=== PATIENT | male | born 1980 | race American Indian/Alaskan Native ===

== ENCOUNTER 2017-05-22 00:58 | Emergency (ER) | payer MEDICARE ==
--- NOTE | 2017-05-22 03:09 | XRay Report ---
FINAL REPORT PROCEDURE: XR KNEE 1-2V RT TECHNIQUE: RIGHT knee radiographs, AP and lateral views. CPT 99556 HISTORY: pain and swelling RT KNEE COMPARISON: No prior studies are available for comparison. FINDINGS: Fracture (s) and/or Dislocation(s): None . Alignment: Normal . Joint space(s): Normal . Soft tissues: Normal . Bone mineralization: Normal . Foreign bodies: None . IMPRESSION: Normal Examination.
--- NOTE | 2017-05-22 03:34 | Emergency Department Report ---
HPI - General Chief Complaint: Extremity Injury, Lower - HPI HPI: 37-year-old -[place] male comes in complaining of right knee pain 2 days. Patient reports that his knee has been swollen. He admits that he has a history of gout and believes this is one of his flareups. Patient reports that he's been taking probenecid and Motrin indomethacin and colchicine. Patient admits during interview that his knees seems to be improving. He is requesting a steroid injection. ED Past Medical Hx - Past Medical History Hx Hypertension: Yes Additional medical history: Gout, Morbid Obesity, - Surgical History Additional Surgical History: Back Surgery - Social History Smoking Status: Never Smoker Substance Use Type: None - Medications Home Medications: Home Medications Medication Instructions Recorded Confirmed Last Taken Type Colchicine 0.6 mg PO DAILY 05/22/17 05/22/17 Unknown History Colchicine 0.6 mg PO DAILY #30 capsule 05/22/17 Unknown Rx Indomethacin 50 mg PO DAILY PRN 05/22/17 05/22/17 Unknown History Indomethacin 50 mg PO Q8H #30 capsule 05/22/17 Unknown Rx Motrin 800 MG tab 1 tab PO BID PRN 05/22/17 05/22/17 Unknown History Probenecid 1 tab PO DAILY 05/22/17 05/22/17 Unknown History ED Review of Systems ROS: Stated complaint: GOUT Other details as noted in HPI Constitutional: denies: chills, fever Eyes: denies: eye pain, eye discharge, vision change ENT: denies: ear pain, throat pain Respiratory: denies: cough, shortness of breath, wheezing Cardiovascular: denies: chest pain, palpitations Endocrine: no symptoms reported Gastrointestinal: denies: abdominal pain, nausea, diarrhea Musculoskeletal: joint swelling, arthralgia Skin: denies: rash, lesions Neurological: denies: headache, weakness, paresthesias Psychiatric: denies: anxiety, depression Hematological/Lymphatic: denies: easy bleeding, easy bruising Physical Exam - Physical Exam Vital Signs: Vital Signs 05/22/17 02:01 Temperature 98.3 F Pulse Rate 95 H Respiratory 18 Rate Blood Pressure 161/92 O2 Sat by Pulse 94 Oximetry Physical Exam: GENERAL: Alert and oriented x3, no apparent distress, Normal Gait, atraumatic. HEAD: Head is normocephalic and a-traumatic. EYES: Extra ocular muscles are intact. Pupils are equal, round, and reactive to light and accommodation. NECK: Supple. Non edematous, No carotid bruits. No lymphadenopathy or thyromegaly. LUNGS: Symetrical with respiration, No wheezing, no rales or crackles, CTAB. HEART: S1, S2 present, regular rate and rhythm without murmur, no rubs, no gallops. EXTREMITIES/MUSCULOSKELETAL: No cyanosis, clubbing, rash, lesions or edema. Full ROM bilaterally. UE/LE Pulses 2+ bilaterally. LE and UE 5+ strength bilaterally right knee edema and tenderness with some warth. NEUROLOGIC: No focal Deficit, Cranial nerves II through XII are grossly intact. No loss of sensation, No facial droop, Negative rhomberg. PSYCHIATRIC: Mood is congruent with affect, denies suicidal or homicidal ideations. SKIN: Warm and dry, No lesions, No ulceration or induration present ED Course Vital Signs 05/22/17 02:01 Temperature 98.3 F Pulse Rate 95 H Respiratory 18 Rate Blood Pressure 161/92 O2 Sat by Pulse 94 Oximetry ED Medical Decision Making - Medical Decision Making Assessment evaluated by this provider fast track. I discussed the patient was given one Sweet Water 10 mg as well as at the methadone 20 mg IM. We will discharge patient with refills of his colchicine and his indomethacin. Patient verbalized understanding. Critical care attestation.: If time is entered above; I have spent that time in minutes in the direct care of this critically ill patient, excluding procedure time. ED Disposition Clinical Impression: Gout attack Disposition: DC-01 TO HOME OR SELFCARE Is pt being admited?: No Does the pt Need Aspirin: No Condition: Stable Instructions: Acute Gouty Arthritis (ED) Additional Instructions: Take medication as prescribed. Follow up with her primary care provider for further evaluation. Prescriptions: Colchicine 0.6 mg PO DAILY #30 capsule Indomethacin 50 mg PO Q8H #30 capsule Referrals: AMARIS WOMACK MD [Primary Care Provider] - 3-5 Days
[2017-05-22] MEDS: NORCO 10/325 PO ONE (04:07)
[2017-05-22] MEDS: DECADRON IM ONE ×2 (04:07→04:10)
[2017-05-22 04:33] VITALS: BP 144/94
== END 2017-05-22 04:32 | disposition home or self-care (01) ==
LOC: ED 00:58
DX: M10.9 Gout, unspecified (principal); I10 Essential (primary) hypertension
CPT/HCPCS: 73560; 96372; 99283; J1100

== ENCOUNTER 2017-08-25 21:34 | Emergency (ER) | payer MEDICARE ==
--- NOTE | 2017-08-26 03:05 | Emergency Department Report ---
ED General Adult HPI - General Chief complaint: Pain General Stated complaint: GOUT RT FOOT Time Seen by Provider: 08/26/17 02:33 Source: patient Mode of arrival: Ambulatory Limitations: No Limitations - History of Present Illness Initial comments: This is a 37 y.o. male presents with right foot pain secondary to gout. History of gout, GERD, and hypertension. Patient states he is out of gout medication and having a flare. He left a message at Primary Care Provider's office for refills and they only sent medication for GERD. He is taking ibuprofen for pain with minimal improvement. Patient states it started out on the bottom of right foot but now it is on the top near ankle and he can't bear weight to right foot. Reports right foot is warm with mild swelling near ankle. He is also asking for refills on blood pressure medication until his appointment next month with primary care provider. Denies numbness and tingling. -: week(s) (1) Location: right, lower extremity (right foot) Radiation: non-radiation Severity scale (0 -10): 10 Quality: aching, constant Consistency: constant Improves with: none Worsens with: movement, other (weight bearing or touch) Associated Symptoms: denies other symptoms Treatments Prior to Arrival: NSAID - Related Data Home Medications Medication Instructions Recorded Confirmed Last Taken Colchicine 0.6 mg PO DAILY 05/22/17 05/22/17 Unknown Indomethacin 50 mg PO DAILY PRN 05/22/17 05/22/17 Unknown Motrin 800 MG tab 1 tab PO BID PRN 05/22/17 05/22/17 Unknown Probenecid 1 tab PO DAILY 05/22/17 05/22/17 Unknown Previous Rx's Medication Instructions Recorded Last Taken Type Colchicine 0.6 mg PO DAILY #30 capsule 08/26/17 Unknown Rx Indomethacin 50 mg PO Q8H #30 capsule 08/26/17 Unknown Rx amLODIPine [Norvasc] 5 mg PO DAILY 30 Days #30 tab 08/26/17 Unknown Rx Allergies Allergy/AdvReac Type Severity Reaction Status Date / Time No Known Allergies Allergy Verified 08/25/17 22:36 ED Review of Systems ROS: Stated complaint: GOUT RT FOOT Other details as noted in HPI Constitutional: denies: chills, fever Respiratory: denies: cough, shortness of breath, wheezing Cardiovascular: denies: chest pain, palpitations Gastrointestinal: denies: abdominal pain, nausea, diarrhea Musculoskeletal: joint swelling (right ankle and foot), arthralgia (right foot) ED Past Medical Hx - Past Medical History Hx Hypertension: Yes Additional medical history: Gout, Morbid Obesity, - Surgical History Past Surgical History?: Yes Additional Surgical History: Back Surgery - Social History Smoking Status: Never Smoker Substance Use Type: None - Medications Home Medications: Home Medications Medication Instructions Recorded Confirmed Last Taken Type Colchicine 0.6 mg PO DAILY 05/22/17 05/22/17 Unknown History Indomethacin 50 mg PO DAILY PRN 05/22/17 05/22/17 Unknown History Motrin 800 MG tab 1 tab PO BID PRN 05/22/17 05/22/17 Unknown History Probenecid 1 tab PO DAILY 05/22/17 05/22/17 Unknown History Colchicine 0.6 mg PO DAILY #30 capsule 08/26/17 Unknown Rx Indomethacin 50 mg PO Q8H #30 capsule 08/26/17 Unknown Rx amLODIPine [Norvasc] 5 mg PO DAILY 30 Days #30 tab 08/26/17 Unknown Rx ED Physical Exam - General Limitations: No Limitations General appearance: alert, in no apparent distress - Respiratory Respiratory exam: Present: normal lung sounds bilaterally. Absent: respiratory distress - Cardiovascular Cardiovascular Exam: Present: regular rate, normal rhythm. Absent: systolic murmur, diastolic murmur, rubs, gallop - GI/Abdominal GI/Abdominal exam: Present: soft, normal bowel sounds - Expanded Lower Extremity Exam Left Hip exam: Present: normal inspection, full ROM Upper Leg exam: Present: normal inspection, full ROM Knee exam: Present: normal inspection, full ROM Lower Leg exam: Present: normal inspection, full ROM Ankle exam: Present: full ROM, swelling Foot/Toe exam: Present: tenderness (tenderness to palpation over anterior tibial area), swelling. Absent: abrasion, laceration, ecchymosis, deformity, crepidus, dislocation, erythema, amputation, puncture wound, foreign body, calcaneal tenderness, tenderness at base of 5th metatarsal, nail avulsion, subungual hematoma Neuro vascular tendon exam: Present: no vascular compromise Gait: Positive: observed and limited by pain, unable to bear weight - Neurological Exam Neurological exam: Present: alert, oriented X3 - Skin Skin exam: Present: warm, dry, intact, normal color. Absent: rash ED Course Vital Signs 08/25/17 22:36 Temperature 98.5 F Pulse Rate 96 H Respiratory 16 Rate Blood Pressure 133/82 O2 Sat by Pulse 97 Oximetry ED Medical Decision Making - Medical Decision Making This is a 37 y.o. male examined by me. Presents with right foot pain secondary to gout and refills on hypertension medication. Uric acid elevation. Patient given indomethacin, colchicine, and dexamethasone once in ER. Discussed plan to treat outpatient with patient. Patient agreed with ED plan. Discharged home with refills on colchicine 0.6 mg po daily, indomethacin 50 mg po daily PRN, and amlodipine 5 mg po daily. Follow up with PCP for management of hypertension and gout. Return to ER if symptoms are not improved in 1 week. Critical care attestation.: If time is entered above; I have spent that time in minutes in the direct care of this critically ill patient, excluding procedure time. ED Disposition Clinical Impression: Gout attack Qualifiers: Gout site: foot Gout etiology: idiopathic Laterality: right Qualified Code(s): M10.071 - Idiopathic gout, right ankle and foot Hypertension Qualifiers: Hypertension type: essential hypertension Qualified Code(s): I10 - Essential ( primary) hypertension Disposition: TO HOME OR SELFCARE Is pt being admited?: No Does the pt Need Aspirin: No Condition: Stable Instructions: Low Purine Diet (ED), Acute Gouty Arthritis (ED), Self-Care Measures with a Chronic Disease (ED), Hypertension (ED) Additional Instructions: Take medication as prescribed daily. Take indomethacin for pain as need every 8 hours. Follow up with Primary Care Provider to manage hypertension and gout. Prescriptions: amLODIPine [Norvasc] 5 mg PO DAILY 30 Days #30 tab Colchicine 0.6 mg PO DAILY #30 capsule Indomethacin 50 mg PO Q8H #30 capsule Referrals: [facility] [Outside] - 3-5 Days [facility] [Outside] - 3-5 Days [facility] [Outside] - 3-5 Days Time of Disposition: 05:00 Print Language: PUERTO RICAN
[2017-08-26] MEDS ORDERED: INDOCIN PO ONE (03:07)
[2017-08-26] MEDS ORDERED: COLCRYS PO ONE (03:07)
[2017-08-26] MEDS ORDERED: DECADRON IM ONE (03:07)
[2017-08-26 05:14] VITALS: BP 134/84
== END 2017-08-26 05:14 | disposition home or self-care (01) ==
LOC: ED 21:34
DX: M10.071 Idiopathic gout, right ankle and foot (principal); I10 Essential (primary) hypertension; E66.01 Morbid (severe) obesity due to excess calories
CPT/HCPCS: 36415; 84550; 96372; 99283; J1100